=== PATIENT | male | born 1995 | race American Indian/Alaskan Native ===

== ENCOUNTER 2019-11-21 19:03 | Emergency (ER) | payer SELFPAY | END 2019-11-21 20:04 | disposition left against medical advice (07) | LOC: ED 19:03 | DX: Z20.2 Contact with and (suspected) exposure to infections with a predominantly sexual mode of transmission (principal); Z53.21 Procedure and treatment not carried out due to patient leaving prior to being seen by health care provider ==

== ENCOUNTER 2019-11-22 12:11 | Emergency (ER) | payer SELFPAY ==
[2019-11-22 12:16] VITALS: BP 137/79
--- NOTE | 2019-11-22 12:42 | Emergency Department Report ---
Chief Complaint: Urogenital-Male Stated Complaint: GETTING BESTED Time Seen by Provider: 11/22/19 12:40 - HPI History of Present Illness: Patient is a 24-year-old male who presents emergency room with complaints of needing an STD test. He states that he has been having dysuria and penile discharge for a week. He denies any nausea, vomiting, diarrhea, fever, pain or swelling in the testicles, abdominal pain, urinary retention. No past medical history. No allergies to medications. Vitals are stable Patient is presenting for STD testing He denies any nausea, vomiting, diarrhea, fever, pain or swelling in the testicles, abdominal pain, urinary retention pt is presenting with a non medical emergency at this time pt given a clinic and the health department in order to receive full STD panel discussed strict return precautions medical screening performed and there is no threat to life or limb at this time - Exam Vital Signs: Vital Signs 11/22/19 12:15 Temperature 97.9 F Pulse Rate 98 H Respiratory 16 Rate Blood Pressure 137/79 [Right] O2 Sat by Pulse 99 Oximetry MSE screening note: Focused history and physical exam performed. ED Disposition for MSE Clinical Impression: Concern about STD in male without diagnosis Disposition: Z-07 MED SCREENING EXAM-LEFT Is pt being admited?: No Does the pt Need Aspirin: No Condition: Stable Instructions: Sexually Transmitted Diseases (ED), Safe Sex (ED) Additional Instructions: please follow up with a clinic or health department for full STD panel. avoid sexual intercourse. have partner tested and treated as well. return to the emergency room for any new or worsening symptoms. [facility] Address: [address] [place] [id number] Referrals: [facility] [Outside] - 2-3 Days Time of Disposition: 12:40 Print Language: CUBAN
== END 2019-11-22 15:20 | disposition left against medical advice (07) ==
LOC: ED 12:11
DX: Z00.00 Encounter for general adult medical examination without abnormal findings (principal); Z53.21 Procedure and treatment not carried out due to patient leaving prior to being seen by health care provider

== ENCOUNTER 2019-11-27 11:16 | Emergency (ER) | payer SELFPAY ==
[2019-11-27 11:32] VITALS: BP 134/61
--- NOTE | 2019-11-27 11:54 | Emergency Department Report ---
ED Male HPI - General Chief complaint: Urogenital-Male Stated complaint: GET CHECKED Time Seen by Provider: 11/27/19 11:50 Source: patient Mode of arrival: Ambulatory Limitations: No Limitations - History of Present Illness Initial comments: This is a 24-year-old male nontoxic, well in appearance with no signs of distress presents to the ED for STD check. Patient stated that his partner called and said has STD. Patient stated he is asymptotic. Denies any penile discharge, testicular pain, or swelling. Patient denies any urinary symptoms. Patient denies any fever, chills, headache, nausea, vomiting, chest pain or shortness of breathe. denies any other symptoms or complaints. Denies any allergies or PMH. Severity scale (0 -10): 0 Improves with: none Worsens with: none denies other symptoms. denies: discharge, swelling, mass, rash, urinary retention, blood in urine, dysuria, fever, nausea/vomiting, incontinence - Related Data Allergies Allergy/AdvReac Type Severity Reaction Status Date / Time No Known Allergies Allergy Unverified 11/22/19 12:15 ED Review of Systems ROS: Stated complaint: GET CHECKED Other details as noted in HPI Constitutional: denies: chills, fever Eyes: denies: eye pain, eye discharge, vision change ENT: denies: ear pain, throat pain Respiratory: denies: cough, shortness of breath, wheezing Cardiovascular: denies: chest pain, palpitations Endocrine: no symptoms reported Gastrointestinal: denies: abdominal pain, nausea, diarrhea Genitourinary: denies: urgency, dysuria Musculoskeletal: denies: back pain, joint swelling, arthralgia Skin: denies: rash, lesions Neurological: denies: headache, weakness, paresthesias Psychiatric: denies: anxiety, depression Hematological/Lymphatic: denies: easy bleeding, easy bruising ED Past Medical Hx - Past Medical History Previous Medical History?: No - Surgical History Past Surgical History?: No ED Physical Exam - General Limitations: No Limitations General appearance: alert, in no apparent distress - Head Head exam: Present: atraumatic, normocephalic - Neck Neck exam: Present: normal inspection, full ROM - GI/Abdominal GI/Abdominal exam: Present: soft, normal bowel sounds. Absent: distended, tenderness, guarding, rebound, rigid, diminished bowel sounds - Extremities Exam Extremities exam: Present: full ROM - Back Exam Back exam: Present: full ROM. Absent: tenderness, CVA tenderness (R), CVA tenderness (L), muscle spasm, paraspinal tenderness, vertebral tenderness, rash noted - Neurological Exam Neurological exam: Present: alert, oriented X3, normal gait - Psychiatric Psychiatric exam: Present: normal affect, normal mood - Skin Skin exam: Present: warm, dry, intact, normal color. Absent: rash ED Course Vital Signs 11/27/19 11:31 Temperature 98.0 F Pulse Rate 68 Respiratory 16 Rate Blood Pressure 134/61 [Right] O2 Sat by Pulse 99 Oximetry - Reevaluation(s) Reevaluation #1: 11/27/19 11:53 Patient is speaking in full sentences with no signs of distress noted. ED Medical Decision Making - Medical Decision Making This is a 24-year-old male that presents with nonmedical emergency complaint. Patient is just requested for a STD test. Patient denies any symptoms. I gave patient many different referrals to follow-up with STD concerns. Patient was instructed to Follow-up with a primary care doctor in 3-5 days or if symptoms worsen and continue return to emergency room as soon as possible. At time of discharge, the patient does not seem toxic or ill in appearance. No acute signs of distress noted. Patient agrees to discharge treatment plan of care. No further questions noted by the patient. Critical care attestation.: If time is entered above; I have spent that time in minutes in the direct care of this critically ill patient, excluding procedure time. ED Disposition Clinical Impression: Possible exposure to STD Disposition: MED SCREENING EXAM-LEFT Is pt being admited?: No Does the pt Need Aspirin: No Condition: Stable Instructions: Safe Sex (ED) Additional Instructions: Follow-up with a primary care doctor in 3-5 days or if symptoms worsen and continue return to emergency room as soon as possible. Referrals: SOREN JAY MD [Referring] - 3-5 Days JOSE JUAREZ MD [Staff Physician] - 3-5 Days [facility] [Provider Group] - 3-5 Days
== END 2019-11-27 15:59 | disposition left against medical advice (07) ==
LOC: ED 11:16
DX: Z53.21 Procedure and treatment not carried out due to patient leaving prior to being seen by health care provider (principal)

== ENCOUNTER 2020-09-21 22:26 | Emergency (ER) | payer SELFPAY | END 2020-09-22 07:30 | disposition left against medical advice (07) | LOC: ED 22:26 | DX: J45.909 Unspecified asthma, uncomplicated (principal); E11.9 Type 2 diabetes mellitus without complications; Z53.21 Procedure and treatment not carried out due to patient leaving prior to being seen by health care provider ==